=== PATIENT | male | born 1945 | race Caucasian/White ===

== ENCOUNTER 2016-11-16 06:27 | Day surgery (SDC) | payer OTHER ==
--- NOTE | ~2016-11-16 | EGD ---
EGD REPORT [facility] [address] [address] NAME: MIKI BECK : [birth year] STATUS : REG [facility] [place] PAT#: [id number] AGE: 71 ADM/REG DATE : 11/16/16 MR#: [id number] REPORT SERV DATE: 11/16/16 DICTATED BY: MAYNOR BRUNER DATE: 11/16/16 REPORT STATUS : Draft TRANSCRIBED BY: [facility] DATE: 11/16/16 Endoscopy Center Patient Name: Miki Beck Date of : 1945 Attending MD: NAKUL BRUNER MD Procedure Date No Time: 11/16/2016 Procedure: Upper GI endoscopy Indications: Iron deficiency anemia, Gastro-esophageal reflux disease Referring MD: ALBAN GUZMAN Medicines: See the Anesthesia note for documentation of the administered medications Complications: No immediate complications. Estimated blood loss: Minimal. Procedure: Pre-Anesthesia Assessment: - ASA Grade Assessment: III - A patient with severe systemic disease. - Prior to the procedure, a History and Physical was performed, and patient medications and allergies were reviewed. The patient's tolerance of previous anesthesia was also reviewed. The risks and benefits of the procedure and the sedation options and risks were discussed with the patient. All questions were answered, and informed consent was obtained. Prior Anticoagulants: The patient has taken no previous anticoagulant or antiplatelet agents. After reviewing the risks and benefits, the patient was deemed in satisfactory condition to undergo the procedure. After obtaining informed consent, the endoscope was passed under direct vision. Throughout the procedure, the patient's blood pressure, pulse, and oxygen saturations were monitored continuously. The GIF [id number] [id number] was introduced through the mouth, and advanced to the second part of duodenum. The upper GI endoscopy was accomplished without difficulty. The patient tolerated the procedure well. Findings: The examined duodenum was normal. Biopsies were taken with a cold forceps for histology. The entire examined stomach was normal. Biopsies were taken with a cold forceps for histology. The cardia and gastric fundus were normal on retroflexion. A non-obstructing Schatzki ring (acquired) was found at the gastroesophageal junction. No other significant abnormalities were identified in a careful EGD REPORT [address] [address] NAME: MIKI BECK : [birth year] STATUS : REG [facility] [place] PAT#: [id number] AGE: 71 ADM/REG DATE : 11/16/16 MR#: [id number] REPORT SERV DATE: 11/16/16 DICTATED BY: MAYNOR BRUNER DATE: 11/16/16 REPORT STATUS : Draft TRANSCRIBED BY: [employer] DATE: 11/16/16 examination of the esophagus. Impression: - Normal examined duodenum. Biopsied. - Normal stomach. Biopsied. - Non-obstructing Schatzki ring. Recommendation: - Patient has a contact number available for emergencies. The signs and symptoms of potential delayed complications were discussed with the patient. Return to normal activities tomorrow. Written discharge instructions were provided to the patient. - Regular diet. - Discharge patient to home. - Continue present medications. - Await pathology results. Procedure Code(s): --- Professional --- 06779, Esophagogastroduodenoscopy, flexible, transoral; with biopsy, single or multiple Diagnosis Code(s): --- Professional --- K22.2, Esophageal obstruction D50.9, Iron deficiency anemia, unspecified K21.9, Gastro-esophageal reflux disease without esophagitis CPT copyright 2013 [employer]. All rights reserved. The codes documented in this report are preliminary and upon slitter scorer review may be revised to meet current compliance requirements. NAKUL BRUNER MD 11/16/2016 8:40 AM This report has been signed electronically. Number of Addenda: 0 Note Initiated On: 11/16/2016 8:20 AM Scope Withdrawal Time 0 hours 0 minutes 0 seconds [id number] [id number]
--- NOTE | ~2016-11-16 | EGD ---
EGD REPORT [facility] [address] [address] NAME: MIKI BECK : [birth year] [place]US : [place] [facility] [place] PAT#: [id number] AGE: 71 ADM/REG DATE : 11/16/16 MR#: [id number] REPORT SERV DATE: 11/16/16 DICTATED BY: MAYNOR BRUNER DATE: 11/16/16 REPORT STATUS : Draft TRANSCRIBED BY: [facility] DATE: 11/16/16 Endoscopy Center Patient Name: Miki Beck Date of : 1945 Attending MD: NAKUL BRUNER MD Procedure Date No Time: 11/16/2016 Procedure: Colonoscopy Indications: Abdominal pain in the right lower quadrant, Iron deficiency anemia Referring MD: ALBAN GUZMAN Medicines: See the Anesthesia note for documentation of the administered medications Complications: No immediate complications. Estimated blood loss: None. Procedure: Pre-Anesthesia Assessment: - ASA Grade Assessment: III - A patient with severe systemic disease. - Prior to the procedure, a History and Physical was performed, and patient medications and allergies were reviewed. The patient's tolerance of previous anesthesia was also reviewed. The risks and benefits of the procedure and the sedation options and risks were discussed with the patient. All questions were answered, and informed consent was obtained. Prior Anticoagulants: The patient has taken no previous anticoagulant or antiplatelet agents. After reviewing the risks and benefits, the patient was deemed in satisfactory condition to undergo the procedure. After I obtained informed consent, the scope was passed under direct vision. Throughout the procedure, the patient's blood pressure, pulse, and oxygen saturations were monitored continuously. The PCF [id number] was introduced through the anus and advanced to the terminal ileum. The ileocecal valve, appendiceal orifice, terminal ileum and rectum were photographed. The entire colon was examined. The colonoscopy was performed without difficulty. The patient tolerated the procedure well. The quality of the bowel preparation was adequate. Findings: The perianal and digital rectal examinations were normal. The terminal ileum appeared normal. Multiple small and large-mouthed diverticula were found in the entire colon. Non-bleeding internal hemorrhoids were found during retroflexion and were Grade I (internal hemorrhoids that do not prolapse). EGD REPORT [facility] [id number] [place]. [address] NAME: MIKI BECK JR : [birth year] STATUS : [facility]#: [id number] AGE: 71 ADM/REG DATE : 11/16/16 MR#: [id number] REPORT SERV DATE: 11/16/16 DICTATED BY: MAYNOR BRUNER DATE: 11/16/16 REPORT STATUS : Draft TRANSCRIBED BY: [employer] DATE: 11/16/16 Anal papilla(e) were hypertrophied. Impression: - The examined portion of the ileum was normal. - Diverticulosis in the entire examined colon. - Non-bleeding internal hemorrhoids. - Anal papilla(e) were hypertrophied. Recommendation: - Patient has a contact number available for emergencies. The signs and symptoms of potential delayed complications were discussed with the patient. Return to normal activities tomorrow. Written discharge instructions were provided to the patient. - Discharge patient to home. - Continue present medications. - High fiber diet indefinitely. - Repeat colonoscopy is not recommended for surveillance. Procedure Code(s): --- Professional --- 94623, Colonoscopy, flexible, proximal to splenic flexure; diagnostic, with or without collection of specimen(s) by brushing or washing, with or without colon decompression (separate procedure) Diagnosis Code(s): --- Professional --- K64.0, First degree hemorrhoids K57.30, Diverticulosis of large intestine without perforation or abscess without bleeding K62.89, Other specified diseases of anus and rectum R10.31, Right lower quadrant pain D50.9, Iron deficiency anemia, unspecified CPT copyright 2013 [employer]. All rights reserved. The codes documented in this report are preliminary and upon child caregiver review may be revised to meet current compliance requirements. NAKUL BRUNER MD 11/16/2016 8:55 AM This report has been signed electronically. Number of Addenda: 0 Note Initiated On: 11/16/2016 8:38 AM Scope Withdrawal Time 0 hours 7 minutes 23 seconds [id number] [id number]
[~2016-11-16 06:27] MED LIST: ASA5GR PO; CIP2 PO; CYANO1000T PO; FISH-EPA1000 MG PO; GLUCOPHAGE1000 MG PO; HORMONE INJECTION; LOP50 PO; NITROSTAT0.4 MG SL; NORCO1 TA1 PO; OS500+D PO; PRILO PO; PROLOP100 PO; PROZAC PO; SIMVAS; SPIRIVA RESPIMAT INH; TRIMETHOPRIM100 MG PO; VASOTEC5 PO; VITAMIN B; WELL75 PO; ZOCOR80 MG PO
== END 2016-11-16 23:59 | disposition home or self-care (01) ==
LOC: DMU 06:27
PROVIDERS: Internal Medicine Gastroenterology
PROC: 0DJD8ZZ Inspection of Lower Intestinal Tract, Via Natural or Artificial Opening Endoscopic (ICD-10-PCS; 2016-11-16)
PROC: 0DB98ZX Excision of Duodenum, Via Natural or Artificial Opening Endoscopic, Diagnostic (ICD-10-PCS; principal; 2016-11-16 08:30)
PROC: 0DB68ZX Excision of Stomach, Via Natural or Artificial Opening Endoscopic, Diagnostic (ICD-10-PCS; 2016-11-16 08:30)
DX: K29.50 Unspecified chronic gastritis without bleeding (principal); K21.9 Gastro-esophageal reflux disease without esophagitis; K64.0 First degree hemorrhoids; K57.30 Diverticulosis of large intestine without perforation or abscess without bleeding; K62.89 Other specified diseases of anus and rectum; D50.9 Iron deficiency anemia, unspecified; I10 Essential (primary) hypertension; E78.00 Pure hypercholesterolemia, unspecified; Z87.891 Personal history of nicotine dependence; E11.9 Type 2 diabetes mellitus without complications; I25.10 Atherosclerotic heart disease of native coronary artery without angina pectoris; F41.9 Anxiety disorder, unspecified; F32.9 Major depressive disorder, single episode, unspecified; I25.2 Old myocardial infarction; Z87.442 Personal history of urinary calculi; Z98.890 Other specified postprocedural states
CPT/HCPCS: 82962; 88305; 93005